=== PATIENT | male | born 1965 | race Caucasian/White ===

== ENCOUNTER 2022-01-11 16:36 | Outpatient (REF) | payer OTHER, SELFPAY ==
[2022-01-11 21:51] LABS: ALT 35 U/L (16-63); AST 17 U/L (15-37); Albumin 4.6 g/dL (3.4-5.0); Alkaline Phosphatase 87 U/L (46-116); Anion Gap 10.4 mmol/L (3-11); BUN 13 mg/dL (7-18); Bilirubin, Total 0.5 mg/dL (0.2-1.0); CO2 25.6 mmol/L (21.0-32.0); Calcium 9.4 mg/dL (8.5-10.1); Calculated LDL 165 mg/dL (<100); Chloride 102 mmol/L (98-107); Cholesterol 265 mg/dL (<200); Estimated GFR 89.44 (mL/min/1.73m2); Glucose 94 mg/dL (74-106); HDL Cholesterol 41 mg/dL (40-60); Sodium 138 mmol/L (136-145); Total Protein 7.9 g/dL (6.4-8.2); Triglyceride 297 mg/dL (<150)
[2022-01-11 21:57] LABS: Hemoglobin A1C 5.6 % (<5.7)
[2022-01-13 10:12] LABS: Hepatitis C Ab w Rflx HCV PCR Negative (Negative)
[2022-01-13 10:24] LABS: HIV-1/2 Ag & Ab Screen Negative (Negative)
== END 2022-01-11 16:37 | disposition home or self-care (01) ==
LOC: NCHCN 16:36
PROVIDERS: PCP Internal Medicine; Visit Provider Nurse Practitioner Family
DX: Z00.00 Encounter for general adult medical examination without abnormal findings (principal); Z13.1 Encounter for screening for diabetes mellitus; E78.5 Hyperlipidemia, unspecified
CPT/HCPCS: 80053; 80061; 86803; 87389; 83036

== ENCOUNTER 2024-03-19 08:02 | Outpatient (REF) | payer OTHER, SELFPAY ==
[2024-03-19 14:47] LABS: HCT 44.8 % (40.0-50.0); HGB 15.2 g/dL (13.5-17.5); MCH 30.8 pg (27.0-33.0); MCHC 33.9 % (32.0-36.0); MCV 91 fL (80-95); MPV 10.6 fL (8.0-11.0); Platelet Count 297 10^3/uL (130-400); RBC 4.94 10^6/uL (4.36-5.78); RDW 12.5 % (11.8-14.1); RDW-SD 41.6 fL; WBC 8.08 10^3/uL (4.4-10.8)
[2024-03-19 15:05] LABS: Hemoglobin A1C 5.5 % (<5.7)
[2024-03-19 15:19] LABS: ALT 43 U/L (16-63); AST 13 U/L (15-37); Albumin 4.2 g/dL (3.4-5.0); Alkaline Phosphatase 95 U/L (46-116); Anion Gap 9.1 mmol/L (3-11); BUN 14 mg/dL (7-18); Bilirubin, Total 0.65 mg/dL (0.2-1.0); CO2 26.9 mmol/L (21.0-32.0); CREATININE 1.1 mg/dL (0.70-1.30); Calcium 9.2 mg/dL (8.5-10.1); Chloride 105 mmol/L (98-107); Cholesterol 267 mg/dL (<200); Glucose 108 mg/dL (74-106); HDL Cholesterol 37 mg/dL (40-60); Potassium 4.4 mmol/L (3.5-5.1); Sodium 141 mmol/L (136-145); Total Protein 7.6 g/dL (6.4-8.2); Triglyceride 531 mg/dL (<150)
[2024-03-19 16:14] LABS: LDL CHOLESTEROL 110 mg/dL (<100)
== END 2024-03-19 08:03 | disposition home or self-care (01) ==
LOC: NCHCN 08:02
PROVIDERS: PCP Internal Medicine; Visit Provider Nurse Practitioner Family
DX: R03.0 Elevated blood-pressure reading, without diagnosis of hypertension (principal); E66.9 Obesity, unspecified
CPT/HCPCS: 80053; 80061; 83721; 85027; 83036